=== PATIENT | male | born 1950 | race African-American/Black ===

== ENCOUNTER 2022-04-13 22:13 | Emergency (ER) | payer MEDICARE ==
[~2022-04-13] VITALS: Ht 185.4 cm; Wt 92.3 kg
[2022-04-14] MEDS ORDERED: ACETAMINOPHEN WITH CODEINE 300/30MG TABLET PO STA (00:02)
[2022-04-14 00:13] VITALS: BP 132/79
[2022-04-14] MEDS ORDERED: TRAM50TA3 PO (01:58)
[2022-04-14] MEDS ORDERED: TOPUD PO (01:58)
== END 2022-04-14 02:52 | disposition home or self-care (01) ==
LOC: ER 22:13
DX: L84 Corns and callosities (principal); I10 Essential (primary) hypertension; E11.9 Type 2 diabetes mellitus without complications
CPT/HCPCS: 73630; 99283